=== PATIENT | male | born 1945 | race Caucasian/White ===

== ENCOUNTER 2018-11-05 12:12 | Inpatient (IN) | payer MEDICARE, OTHER ==
[2018-11-05] MEDS ORDERED: Nitroglycerin 2% Ointment 1 INCH/1 GM Packet ONE (13:34)
[2018-11-05 14:13] LABS: Troponin I 0.011 ng/mL (< 0.028)
[2018-11-05 16:58] LABS: Troponin I 0.015 ng/mL (< 0.028)
[2018-11-05] MEDS ORDERED: Ondansetron PF 4 MG/2 ML Vial IVP PRN (17:25)
[2018-11-05] MEDS ORDERED: Acetaminophen 500 MG TAB PO PRN (17:25)
[2018-11-05] MEDS ORDERED: hydrALAZINE 20 MG/ML VIAL SLOW IVP PRN (17:25)
[2018-11-05] MEDS ORDERED: Calcium Carbonate 500 MG ChewTAB PO PRN (17:25)
[2018-11-05 19:58] VITALS: BMI 27.6
[2018-11-05 20:38] LABS: Troponin I Less than 0.010 ng/mL (< 0.028)
[2018-11-05] MEDS ORDERED: Atorvastatin Calcium 40 MG TAB PO SCH (21:00)
[2018-11-05] MEDS: Enoxaparin Sodium 80 MG/0.8 ML SYRINGE SC SCH (21:23)
[2018-11-05] MEDS: Nitroglycerin 2% Ointment 1 INCH/1 GM Packet TOP SCH (21:23)
--- NOTE | 2018-11-05 21:56 | HP ---
CHIEF COMPLAINT: Chest pain. HISTORY OF PRESENT ILLNESS: The patient is a pleasant 73-year-old male with past medical history significant for known coronary artery disease status post bypass grafting status post stenting back in 2004, with recent abnormal MPI at his primary ecg technician's office this past , who presented to the [place] [facility] with complaints of chest discomfort. The patient reports that he has had some progressive shortness of breath over the last several months along with fatigue, which prompted the recent MPI at his primary ecg technician's office in [place]. He follows with Dr. Shaan Li at [facility]. The patient was called after the test was read and told that it was abnormal, and he was scheduled to go back in to see his ecg technician this next Wednesday. Whether or not that was for a left heart catheterization or just an office visit, I cannot glean at this time. In any case, the patient was shopping with his son this afternoon, when the patient began experiencing some substernal chest pain. It was nonradiating, and he described it as burning, and initially thought it was indigestion. However, the patient also experienced some nausea and dizziness, that forced him to sit down. The patient became very diaphoretic and pale. He tried to stand up and then fell to the ground, but then managed to get himself back up to a seated position. He took a sublingual nitroglycerin without much relief from his discomfort, and so his son drove him to the nearest emergency room, which was the [place] [facility]. On arrival to the [place] [facility], report that I got says that he had some flipped T-waves on his EKG, however, the EKG that I am reviewing does not indicate flipped T-waves, but does show sinus bradycardia with frequent PVCs. He was started on a nitroglycerin drip, which eventually relieved some of his chest pain. He was also given Lovenox and aspirin. He was transferred to our facility for higher level of care. EKG on arrival shows sinus bradycardia with a ventricular rate of 56 beats per minute, and PVCs. His serial troponin has been negative x2. Chest x-ray upon arrival showed no active intrathoracic disease. REVIEW OF SYSTEMS: The patient does report progressive shortness of breath over the past couple of months as well as fatigue. This prompted his recent stress test. Otherwise, 12-point review of systems is negative except that stated above. He denies any recent illnesses, fevers, or chills. No blood in his urine or stool. ALLERGIES: NO KNOWN DRUG ALLERGIES. HOME MEDICATIONS: 1. Atorvastatin 40 mg daily. 2. Metformin 500 mg p.o. b.i.d. 3. Ranitidine 150 mg daily. 4. Losartan 50 mg daily. 5. Clopidogrel 75 mg daily. 6. Tamsulosin 0.4 mg daily. 7. Nitrostat 0.4 mg sublingual p.r.n. chest discomfort. PAST MEDICAL HISTORY: As mentioned, the patient has a fairly extensive coronary artery disease history, with bypass and stents. He states he has not had a left heart catheterization since 2004, but has had stress test with his ecg technician. The patient states he has prediabetes, which is why he is on the metformin as well as hypertension. He also has BPH. SOCIAL HISTORY: The patient smoked cigarettes until 2004, when he had surgery. He does drink occasionally. No illicit drug use. 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 He taught at [employer] and [employer] for many years. He has 4 children. He lives in [place], but does have a 2nd home in between [place] and [place]. FAMILY HISTORY: Positive for coronary artery disease in his mother. SURGICAL HISTORY: Bypass surgery and stents as mentioned. The patient has also had a laparoscopic shoulder repair on his right shoulder. CODE STATUS: The patient is a full code. PHYSICAL EXAMINATION: VITAL SIGNS: At the time of my evaluation in the ER around 4 p.m. on November 05, 2018, blood pressure 143/72; pulse is in the 50s, sinus; O2 saturation is 97% on room air, respirations are 20. The patient is afebrile, 97.7 degrees. GENERAL: The patient is awake, alert, and oriented. He is in no acute distress or pain at this time. HEENT: Head; atraumatic and normocephalic. Mucous membranes are moist. NECK: No carotid bruits. No JVD. Trachea is midline. CV: S1, S2, regular rhythm with occasional ectopy, harsh systolic murmur grade 2/6 consistent with aortic stenosis. LUNGS: Regular respiratory rate and pattern. Clear to auscultation bilaterally. ABDOMEN: Positive bowel sounds. Soft, nontender. EXTREMITIES: No edema, +2 DP pulses bilaterally. SKIN: Warm and dry. No apparent rashes or lesions. NEUROLOGIC: Cranial nerves 2 through 12 are intact. The patient is nonfocal. MUSCULOSKELETAL: No joint effusions or swelling. LABORATORY DATA: White blood cell count 6.9, hemoglobin 13.6, hematocrit 41.4%, platelet count 187. Sodium 139, potassium 4.3, chloride 107, BUN 22, creatinine 1.26, glucose 194. AST, ALT, and alkaline phosphatase all within normal limits. Troponin 0.015 and 0.011 respectively. BNP 115. Albumin 4.2. EKG; as mentioned in HPI. His chest x-ray was clear. ASSESSMENT: 1. Unstable angina. The patient has somewhat worrisome symptoms in the setting of known coronary artery disease and recent abnormal myocardial perfusion imaging. 2. Abnormal myocardial perfusion imaging scan November 03, 2018, official report currently unavailable. 3. Known coronary artery disease status post CABG in 2004, status post stents in 2004 several months post coronary artery bypass graft due to premature graft failure. The patient reports no previous history of myocardial infarction. 4. Frequent PVCs, possibly ischemic mediated. 5. Prediabetes mellitus per the patient. 6. Hypertension. 7. Systolic murmur consistent with aortic stenosis. PLAN: We will admit the patient to the telemetry unit for continued serial troponins. We will continue the patient's Plavix and add aspirin. We will also continue Lovenox 1 mg/kg b.i.d. We will continue his statin. We will also continue ARB. Unfortunately, the patient is not a candidate for beta-radha secondary to his bradycardia. The case has been discussed with ecg technician on-call Dr. Arzate, for further recommendations and management. We will also obtain an A1c in the morning, fasting lipid panel in the morning, and we will go ahead and get a magnesium level now. Further recommendations based on hospital course. The care of this patient has been discussed in detail with Dr. Holman, who agrees with the plan as outlined above. Job ID: [id number] [facility]
[2018-11-06] MEDS: Nitroglycerin 2% Ointment 1 INCH/1 GM Packet TOP SCH (05:31)
[2018-11-06 05:58] LABS: Anion Gap 10 mmol/L (10-20); BUN (Urea Nitrogen) 17 mg/dL (8.4-25.7); Calc. Creatinine Clearance 94 mL/min (70-130); Calcium 9.2 mg/dL (7.8-10.44); Carbon Dioxide 25 mmol/L (23-31); Cardiac Risk 3.7 (Less than 4.5); Chloride 107 mmol/L (98-107); Cholesterol 112 mg/dl (< 200 Desired); Estimated GFR-MDRD 88; Glucose 101 mg/dL (83-110); HDL Cholesterol 30 mg/dL (>60 Neg Risk); LDL Cholesterol, Calculated 64 mg/dL; Magnesium 1.8 mg/dL (1.6-2.6); Potassium 3.9 mmol/L (3.5-5.1); Sodium 138 mmol/L (136-145); Triglycerides 88 mg/dL (Less than 150)
[2018-11-06] MEDS: Losartan 25 MG TAB PO SCH (08:26)
[2018-11-06] MEDS: Atorvastatin Calcium 40 MG TAB PO SCH (08:27)
[2018-11-06] MEDS: Aspirin 81 mg Enteric Coated Tablet PO SCH (08:27)
[2018-11-06] MEDS: Clopidogrel Bisulfate 75 MG TAB PO SCH (08:27)
[2018-11-06] MEDS: Enoxaparin Sodium 80 MG/0.8 ML SYRINGE SC SCH (08:27)
--- NOTE | 2018-11-06 13:25 | CON ---
DATE OF CONSULTATION: HISTORY OF PRESENT ILLNESS: The patient is a 73-year-old gentleman, who presents for evaluation of chest discomfort. The patient has a history of coronary artery bypass graft surgery x4 in 2004. He states he suddenly had occlusion of 2 grafts and underwent PTCA and stent placement. The patient has been in his usual state of health until a few weeks ago when he developed recurrent exertional chest discomfort. He states with significant exertion, he would develop left-sided chest discomfort. The pain would always be relieved by 1 nitroglycerin tablet. The patient yesterday had a midsternal discomfort that felt like indigestion. He got anxious and took 2 nitroglycerin. He suddenly became weak and lightheaded. He states this discomfort was completely different. It was not the same as his anginal discomfort. He went to the local emergency room and was transferred for further evaluation. The patient denies having any present chest discomfort. PAST MEDICAL HISTORY: 1. Coronary artery disease. 2. Diabetes mellitus. 3. Hypertension. 4. Dyslipidemia. PAST SURGICAL HISTORY: Coronary artery bypass graft surgery, biceps surgery repair and prostate surgery. SOCIAL HISTORY: Nonsmoker. ALLERGIES: NO KNOWN DRUG ALLERGIES. MEDICATIONS: 1. Tamsulosin 0.4 at bedtime. 2. Zantac 150 daily. 3. Losartan 50 daily. 4. Plavix 75 daily. 5. Metformin 1 tablet b.i.d. 6. Lipitor 40 at bedtime. REVIEW OF SYSTEMS: Ten-point system, otherwise unremarkable. PHYSICAL EXAMINATION: GENERAL: This is a well-developed gentleman, in no acute distress. VITAL SIGNS: Blood pressure of 156/72. NECK: Showed no jugular venous distention. LUNGS: Clear to auscultation. HEART: Regular rate and rhythm. Normal S1 and S2 with a 2/6 systolic murmur. ABDOMEN: Nondistended. EXTREMITIES: Show no edema. VASCULAR: Radial pulses are 2+. LABORATORY RESULTS: Sodium 138, potassium 3.9, chloride 107, bicarbonate 25, BUN 17, creatinine 0.85, and glucose 88. Troponin less than 0.01. His white blood cell count was 6.9, hemoglobin 13.6, hematocrit 41.4, and platelet 187. His EKG revealed normal sinus rhythm with a nonspecific T-wave abnormality and Q-waves suggestive of possible previous inferior infarct. IMPRESSION: 1. Atypical chest pain suggestive of gastroesophageal reflux. 2. Exertional angina. 3. History of coronary artery bypass graft surgery. 4. History of percutaneous transluminal coronary angioplasty and stent placement. 5. Hypertension. 6. Dyslipidemia. 7. History of gastrointestinal reflux. PLAN: This gentleman presents with atypical chest pain. The patient remained hypotensive probably from taking his several nitroglycerin tablets. The patient 's cardiac enzymes revealed no evidence of myocardial infarction. There is no evidence of ischemia on his electrocardiogram. We will treat the patient with Protonix. I have discussed the option of proceeding with cardiac catheterization here at [place] to evaluate his exertional angina. We will follow this patient with you through his hospitalization. Job ID: [id number] [facility]
--- NOTE | 2018-11-06 19:47 | PDOC.PN ---
- Subjective Encounter Start Date: 11/06/18 Encounter Start Time: 19:47 Patient seen and examined for CP. No new complaints. No overnight events - Objective Resuscitation Status - Order Detail: 11/05/18 16:38 Resuscitation Status Routine Co-Sign Provider: Resuscitation Status: FULL: Full Resuscitation Discussed with: patient MAR Reviewed: Yes Vital Signs & Weight: Vital Signs (12 hours) Temp Pulse Resp BP Pulse Ox 11/06/18 15:44 98.6 F 54 L 14 141/75 H 97 11/06/18 12:14 97.9 F 67 16 185/76 H 97 11/06/18 07:59 97.6 F 70 16 156/72 H 94 L Weight Weight 192 lb 5 oz I&O: 11/05/18 11/06/18 11/07/18 06:59 06:59 06:59 Intake Total 400 480 Balance 400 480 Result Diagrams: 11/06/18 05:00 Additional Labs: Accuchecks 11/06/18 10:46 POC Glucose 140 H EKG Reviewed by me: Yes (Tele SR. Sinus pause earlier) Phys Exam - Physical Examination Constitutional: NAD Respiratory: no wheezing, no rales, no rhonchi Cardiovascular: RRR, no rub Gastrointestinal: soft, non-tender, no distention, positive bowel sounds Neurological: non-focal, moves all 4 limbs Dx/Plan - Plan DVT proph w/lovenox, DVT proph w/SCDs IMPRESSION: Unstable angina NSVT Sinus pauses CAD s/p CABG HTN DM2 BPH GERD PLAN: Cont ASA/Plavix/Lovenox Cont Losartan Hold Betablockers due to Sinus pauses Echo pending Cont current meds as below Review of Systems - Medications/Allergies Allergies/Adverse Reactions: Allergies Allergy/AdvReac Type Severity Reaction Status Date / Time No Known Allergies Allergy Verified 11/05/18 20:05 Medications: Current Medications Acetaminophen (Tylenol) 1,000 mg PO Q6H PRN PRN Reason: Mild Pain (1-3) Aspirin (Ecotrin) 81 mg PO DAILY [facility] Last Admin: 11/06/18 08:27 Dose: 81 mg Atorvastatin Calcium (Lipitor) 40 mg PO DAILY [facility] Last Admin: 11/06/18 08:27 Dose: 40 mg Calcium Carbonate (Tums) 1,000 mg PO Q4H PRN PRN Reason: Heartburn or Indigestion Last Admin: 11/05/18 21:23 Dose: 1,000 mg Clopidogrel Bisulfate (Plavix) 75 mg PO DAILY [facility] Last Admin: 11/06/18 08:27 Dose: 75 mg Enoxaparin Sodium (Lovenox) 40 mg SC 2100 [facility] Hydralazine HCl (Apresoline) 10 mg SLOW IVP Q4H PRN PRN Reason: SBP > 180 and HR < 70 Losartan Potassium (Cozaar) 50 mg PO DAILY [facility] Last Admin: 11/06/18 08:26 Dose: 50 mg Ondansetron HCl (Zofran) 4 mg IVP Q6H PRN PRN Reason: Nausea/Vomiting Pantoprazole Sodium (Protonix) 40 mg PO BID [facility] Sodium Chloride (Flush - Normal Saline) 10 ml IVF PRN PRN PRN Reason: Saline Flush
[2018-11-06] MEDS ORDERED: Enoxaparin Sodium 40 MG/0.4 ML SYRINGE SC SCH (21:00)
[2018-11-07 09:27] LABS: Hemoglobin 14.3 g/dL (14.0-18.0); Platelet Count 188 thou/uL (130-400)
[2018-11-07] MEDS: Atorvastatin Calcium 40 MG TAB PO SCH (09:38)
[2018-11-07] MEDS: Clopidogrel Bisulfate 75 MG TAB PO SCH (09:38)
[2018-11-07] MEDS: Losartan 25 MG TAB PO SCH (09:38)
[2018-11-07] MEDS: Aspirin 81 mg Enteric Coated Tablet PO SCH (09:38)
[2018-11-07 09:50] LABS: Anion Gap 10 mmol/L (10-20); BUN (Urea Nitrogen) 18 mg/dL (8.4-25.7); Calc. Creatinine Clearance 73 mL/min (70-130); Calcium 9.5 mg/dL (7.8-10.44); Carbon Dioxide 24 mmol/L (23-31); Chloride 106 mmol/L (98-107); Estimated GFR-MDRD 66; Glucose 224 mg/dL (83-110); Potassium 4.1 mmol/L (3.5-5.1); Sodium 136 mmol/L (136-145)
[2018-11-07 11:57] VITALS: BP 136/60; TEMP 98.7
--- NOTE | 2018-11-07 15:39 | DIS ---
DATE OF ADMISSION: 11/05/2018 DATE OF DISCHARGE: 11/07/2018 FOLLOWUP: 1. Follow up with primary care physician out of town in 1 week. 2. Follow up with insurance loss assessor, Dr. Shaan Li in [place], tomorrow as scheduled. ALLERGIES: NO KNOWN DRUG ALLERGIES. DISCHARGE MEDICATIONS: 1. Aspirin 81 mg daily. 2. Dexilant 60 mg daily. The patient will resume all other home medications including, 1. Plavix 75 mg daily. 2. Losartan 50 mg daily. 3. Metformin 500 mg b.i.d. 4. Flomax 0.4 mg at bedtime. 5. Lipitor 40 mg daily. 6. Sublingual nitroglycerin as needed. INPATIENT COMMUNICATIONS DEPARTMENT CHAIR: Cardiology, Dr. Juan Jose Arzate. DIAGNOSTIC TESTS: Echocardiogram showed left ventricular ejection fraction of 35% to 40% with mildly enlarged right ventricle and moderate aortic stenosis. It also showed mild to moderate tricuspid regurgitation. LABORATORY FINDINGS: CBC showed WBC 6.9 with hemoglobin 13.6, hematocrit 41.4, and platelet 184. Hemoglobin A1c 6.0. TSH 1.5. BNP 115. Troponin was negative. BUN 22, creatinine 1.29. BRIEF HOSPITAL COURSE: The patient is a 73-year-old male with coronary artery disease, status post CABG as well as recent abnormal stress test, presented to the emergency room with chest discomfort associated with nausea and diaphoresis. He took 2 sublingual nitroglycerin with minimal improvement. He then stood up and had a near syncopal episode. Please refer to the history and physical for further details. The patient was admitted to the hospital with a diagnosis of unstable angina. He was started on a nitroglycerin drip initially in the emergency room that was later discontinued. He also received 1 mg/kg Lovenox along with aspirin. Plavix was continued. He was monitored on telemetry. He was evaluated by Cardiology, Dr. Juan Jose Arzate. Echocardiogram was done as discussed above. Per insurance loss assessor, Dr. Juan Jose Arzate, his symptoms were atypical for acute coronary syndrome. He has been started on PPIs, which is probably contributing to his symptoms per Cardiology. However, he had a recent negative stress test. He is scheduled to see his insurance loss assessor tomorrow at 10:[address] Arzate has cleared him for discharge. He was advised to start low-dose aspirin. Plan of care was discussed with the patient in detail. He stated understanding. FINAL DIAGNOSES: 1. Chest discomfort, suspicious for unstable angina. 2. Nonsustained ventricular tachycardia with sinus pauses. Beta blockers were not started due to sinus pauses. 3. Coronary artery disease, status post coronary artery bypass grafting. 4. Recent abnormal stress test. 5. Hypertension. 6. Diabetes mellitus type 2. 7. Benign prostatic hypertrophy. 8. Gastroesophageal reflux disease. 9. Moderate aortic stenosis. 10. Mild to moderate tricuspid regurgitation. 11. Chronic kidney disease, stage 2. 12. Impaired glucose tolerance. His A1c was 6.0. Plan of care was discussed with the patient and the family in detail, they stated understanding. Job ID: [id number]
== END 2018-11-07 13:00 | disposition home or self-care (01) | DRG 303 ==
LOC: ERS 12:12 → ERHOLD 14:10 → 2SE 19:37
PROVIDERS: ADMIT Internal Medicine; ATTEND Internal Medicine
DX: I25.110 Atherosclerotic heart disease of native coronary artery with unstable angina pectoris (principal); I47.2 Ventricular tachycardia; I12.9 Hypertensive chronic kidney disease with stage 1 through stage 4 chronic kidney disease, or unspecified chronic kidney disease; E11.22 Type 2 diabetes mellitus with diabetic chronic kidney disease; N18.2 Chronic kidney disease, stage 2 (mild); N40.0 Benign prostatic hyperplasia without lower urinary tract symptoms; K21.9 Gastro-esophageal reflux disease without esophagitis; I07.1 Rheumatic tricuspid insufficiency; I35.0 Nonrheumatic aortic (valve) stenosis; E78.5 Hyperlipidemia, unspecified; Z79.84 Long term (current) use of oral hypoglycemic drugs; Z79.02 Long term (current) use of antithrombotics/antiplatelets; Z87.891 Personal history of nicotine dependence; Z95.1 Presence of aortocoronary bypass graft
CPT/HCPCS: 36415; 36416; 80048; 80061; 83036; 83735; 84443; 85014; 85018; 85049; 93005; 93306; 94760; J1650